=== PATIENT | female | born 1950 | race Caucasian/White ===

== ENCOUNTER 2018-03-30 13:52 | Emergency (ER) | payer BC ==
[~2018-03-30] VITALS: Ht 162.6 cm; Wt 54.5 kg
[~2018-03-30 13:52] MED LIST: ACET-683 PO; LEVA250T13 PO; MICR10CA PO; NICO14DI3 TD
--- NOTE | 2018-03-30 15:49 | REP ---
CT Head without contrast HISTORY: Recurrent headache COMPARISON: None A large hemorrhagic mass is present in the posterior right parietal and temporal lobe. This measures 2.9 cm in transverse by 5.6 cm in AP dimensions. Surrounding edema is present. There is mass effect with effacement of the overlying cortical sulci and posterior body and atrium of the of the right lateral ventricle and minimal midline shift to the left. A 1 cm hypodense mass is present in the left parietal lobe at the vertex. A 1.9 hemorrhagic mass is present in the the anteromedial left temporal lobe. A 7 mm hemorrhagic mass is present in the anterior right temporal lobe. Areas of decreased attenuation are present in the periventricular white matter. This represents small-vessel ischemic disease. The ventricular system and cortical sulci are dilated consistent with mild volume loss. There is no extra cerebral collection. There is no fracture. The visualized sinuses are clear. IMPRESSION: There are metastatic lesions in the cerebral hemispheres as described above the largest of which is present in the posterior right temporal parietal lobe. There is minimal midline shift to the left. Electronically Signed by Jose Hernadez MD 03/30/2018 03:41 P
[2018-03-30 16:10] LABS: HEMATOCRIT 37.3 % (36.0-47.0); HEMOGLOBIN 13.3 g/dl (12.0-15.5); MEAN CORPUSCULAR HEMOGLOBIN 33.6 pg (27.0-33.0); MEAN CORPUSCULAR HGB CONC 35.7 g/dl (32.0-36.5); MEAN CORPUSCULAR VOLUME 94.2 fl (80.0-96.0); PLATELET COUNT, AUTOMATED 190 10^3/uL (150-450); RED BLOOD COUNT 3.96 10^6/uL (4.00-5.40); WHITE BLOOD COUNT 4.2 10^3/uL (4.0-10.0)
[2018-03-30] MEDS ORDERED: MORPHINE 2 MG/ML 1ML SYRINGE (J2270) IV PRN (16:15)
[2018-03-30] MEDS ORDERED: ONDANSETRON 4MG/2ML VIAL (J2405) IV ONE (16:15)
[2018-03-30 16:21] LABS: INR 1.09; PROTHROMBIN TIME 14.2 SECONDS (12.1-14.4)
[2018-03-30 16:45] LABS: ALBUMIN 3.3 GM/DL (3.2-5.2); ALT/SGPT 46 U/L (12-78); BILIRUBIN,DIRECT 0.2 MG/DL (0.0-0.2); BILIRUBIN,TOTAL 0.6 MG/DL (0.2-1.0); BLOOD UREA NITROGEN 7 MG/DL (7-18); CALCIUM LEVEL 8.3 MG/DL (8.8-10.2); CARBON DIOXIDE LEVEL 24 MEQ/L (21-32); CHLORIDE LEVEL 95 MEQ/L (98-107); CREATININE FOR GFR 0.28 MG/DL (0.55-1.30); GLOMERULAR FILTRATION RATE > 60.0 (>45); GLUCOSE, FASTING 67 MG/DL (70-100); POTASSIUM SERUM 3.8 MEQ/L (3.5-5.1); SODIUM LEVEL 131 MEQ/L (136-145)
--- NOTE | 2018-03-30 17:24 | REP ---
AP PORTABLE CHEST: 03/30/2018. Clinical history: Cough. Findings: No prior study. Lungs are hyperinflated consistent with COPD and fibrosis. There is emphysematous changes mid and upper lung zones. Megan are prominent bilaterally. The right is larger than the left. Although this may be all pulmonary artery hypertension. The differences enough that etiologies would be to be considered. The aorta is calcified at the arch but without aneurysm. Airway is intact. No cardiomegaly, vascular redistribution or edema. Bony thorax shows degenerative changes. Bones appear demineralized. No free air under the diaphragms. Impression: 1. COPD, some emphysematous changes and fibrosis. Pulmonary arteries are prominent centrally suggesting pulmonary artery hypertension. However, the right hilum is asymmetrically larger than the left and this could be more than just pulmonary artery. CT suggested to evaluate for adenopathy or other hilar lesion/mass versus simply asymmetrically large pulmonary artery. Electronically Signed by Octaviano Granda MD 03/30/2018 06:01 P
[2018-03-30] MEDS ORDERED: levETIRAcetam INJection 1,000 MG in D5W 100 ML IV ONE (17:30)
[2018-03-30] MEDS ORDERED: dexameTHASONE 20 MG/5 ML VIAL (J1100) IV ONE (17:30)
[2018-03-30 18:06] VITALS: BP 130/70
== END 2018-03-30 18:09 | disposition short-term general hospital (02) ==
LOC: M ED 13:52
DX: G93.9 Disorder of brain, unspecified (principal); R91.8 Other nonspecific abnormal finding of lung field; J44.9 Chronic obstructive pulmonary disease, unspecified; F10.20 Alcohol dependence, uncomplicated; F17.200 Nicotine dependence, unspecified, uncomplicated; Z91.018 Allergy to other foods
CPT/HCPCS: 70450; 71045; 80048; 80076; 85027; 85610; 96374; 96375; 99285; J1100; J1953; J2270; J2405

== ENCOUNTER → 2018-06-19 | Outpatient (CLI) | payer BC ==
--- NOTE | 2018-06-19 18:17 | REP ---
MRI brain without and with IV gadolinium: History: Brain metastases. Previously treated with cranial irradiation for brain metastases. Comparison CT study March 30, 2018. Comparison MRI study from [facility] has been retrieved dated March 31, 2018. Gadolinium enhancement dose is 8 ml of intravenous ProHance. Technique: Axial and sagittal imaging planes are utilized for T1 and T2-weighted scans. Sequences include spin-echo, fast spin echo, FLAIR, and diffusion weighted sequences. MRI findings: The metastatic lesion in the right occipital lobe has decreased in overall size and its enhancing wall is significantly thinner than it was on March 31, 2018. It measures 3.4 x 2.3 cm in anteroposterior by transverse images, previously 5.5 x 2.6 cm by my measurement. The enhancing nodule at the vertex in the left parietal lobe shows less contrast enhancement. It has decreased in size from 1.24 cm to 1.05 cm. Left inferomedial temporal lobe metastasis has decreased as well measuring 2.0 cm in greatest diameter today, 3.6 cm March 2018. Similar decreases in size of the other smaller temporal lobe metastases are apparent today. No new metastatic lesion is seen. There is diffuse cerebral atrophy. No bony calvarial lesion is seen. No extra-axial fluid collection is seen. No evidence of hemorrhage or infarct. Impression: Decrease in the size of the patient's intracranial metastases post-treatment. No new metastatic lesion is seen. Electronically Signed by Danny Shaw MD 06/19/2018 08:09 P
== END ==
LOC: M PLARAD 13:56
PROVIDERS: ATTEND Internal Medicine Hematology & Oncology
DX: C79.31 Secondary malignant neoplasm of brain (principal)